=== PATIENT | female | born 1985 | race Caucasian/White ===

== ENCOUNTER 2020-06-12 17:02 | Emergency (ER) | payer MEDICAID ==
[~2020-06-12] VITALS: Ht 180.3 cm; Wt 83.5 kg
[2020-06-12 17:18] VITALS: Ht 180.3 cm; Wt 83.5 kg
[2020-06-12 19:31] VITALS: BP 123/88
== END 2020-06-12 19:31 | disposition home or self-care (01) ==
LOC: ED 17:02
DX: S46.911A Strain of unspecified muscle, fascia and tendon at shoulder and upper arm level, right arm, initial encounter (principal); X58.XXXA Exposure to other specified factors, initial encounter; Y93.64 Activity, baseball; Y92.89 Other specified places as the place of occurrence of the external cause; Y99.8 Other external cause status
CPT/HCPCS: J1885